=== PATIENT | female | born 1965 | race Caucasian/White ===

== ENCOUNTER 2024-04-30 16:44 | Emergency (ER) | payer OTHER, SELFPAY ==
--- NOTE | ~2024-04-30 | XR_ITS ---
EXAMINATION: XR chest 2V Exam Date/Time: 04/30/2024 17:05 CDT HISTORY: CHEST PAIN Comparison: None. RESULT: Lines, tubes, and devices: None. Lungs and pleura: Mild peripheral and basilar reticular opacities. Cardiomediastinal silhouette: Stable. Other: No acute osseous or upper abdominal finding. IMPRESSION: Mild interstitial edema versus chronic interstitial change. Reviewed, dictated and finalized at location K.
--- NOTE | 2024-04-30 16:45 | ECG_ITS ---
Test Date: 2024-04-30 16:49:56 Measurements Intervals [place] Rate: 89 P: 57 ID: [id number] QRS: 22 QRSD: 85 T: 14 QT: 357 QTc: 437 Interpretive Statements SINUS RHYTHM POSSIBLE LEFT ATRIAL ENLARGEMENT RSR' IN V1 OR V2, RIGHT VCD OR RVH BORDERLINE ST-T WAVE ABNORMALITY- ANTEROLAT/INF LEADS BASELINE ARTIFACT- I, II, III, AVR, AVF BORDERLINE ECG No previous ECG available for comparison Electronically Signed On 05-01-2024 07:28:26 CDT by Ye Lindquist D.O.
[2024-04-30 16:57] VITALS: BP 140/69; PULSE 90; RESP 16; TEMP 36.6; O2SAT 100
[2024-04-30 17:29] LABS: Basophils Absolute Auto 0.1 K/mm3 (0.0-0.1); Basophils Percent Auto 1.3 % (0.2-1.2); Eosinophils Absolute Auto 0.3 K/mm3 (0-0.3); Eosinophils Percent Auto 3.2 % (0-4.4); Hematocrit 45.6 % (37.0-47.0); Hemoglobin 14.9 g/dL (12.0-15.0); Immature Granulocyte Absolute 0.05 K/mm3 (0.00-0.031); Immature Granulocyte Percent A 0.6 % (0-0.5); Lymphocytes Absolute Auto 2.68 K/mm3 (0.9-3.2); Lymphocytes Percent Auto 30.6 % (18.3-44.2); Mean Corpuscular HGB Conc 32.7 g/dl (32-36); Mean Corpuscular Volume 91.9 fl (80-100); Mean Platelet Volume 8.7 fl (7.4-10.4); Monocytes Absolute Auto 0.6 K/mm3 (0.1-0.6); Neutrophils Percent Auto 57.3 % (45.5-73.1); Platelet Count Result 288 k/mm3 (150-375); Red Blood Count 4.96 M/mm3 (4.2-5.4); Red Cell Distribution Width 13.2 % (11.5-14.5); White Blood Count 8.8 K/mm3 (4.5-10.0)
[2024-04-30 17:39] LABS: Alanine Aminotransferase 16 U/L (6-35); Albumin Level 4.6 g/dL (3.5-5.1); Alkaline Phosphatase 75 U/L (38-126); Anion Gap 9 mmol/L (4-12); Aspartate Amino Transferase 24 U/L (14-36); Bilirubin,Total 0.3 mg/dL (0.2-1.3); Blood Urea Nitrogen 13 mg/dL (7-17); Carbon Dioxide 25 mmol/L (22-30); Chloride 105 mmol/L (98-107); Estimated CRCL calculation 62 ml/min; Estimated Glomerular Filt Rate > 60; Glucose 91 mg/dL (65-110); Lipase 106 U/L (23-300); Potassium 3.8 mmol/L (3.4-5.0); Sodium 139 mmol/L (137-145)
[2024-04-30 17:41] LABS: Partial Thromboplastin Time 27.3 Seconds (22.3-36.8); Prothrombin Time 13.5 Seconds (11.1-14.7)
[2024-04-30 17:50] LABS: Troponin I < 0.012 ng/mL (0.000-0.034)
--- NOTE | 2024-04-30 18:15 | ED.CHESTPAIN ---
HPI - Chest Pain General Chief Complaint: Chest Pain Stated Complaint: chest pain Time Seen by Provider: 04/30/24 18:05 Source: patient and family Mode of arrival: ambulatory Limitations: no limitations History of Present Illness HPI narrative: 58-year-old otherwise healthy here with the complaints of chest pain for past couple did weeks. Patient states that the he has a lab which is about 90 lb jumped on her chest. She denies any shortness of breath however she states that it hurts with a deep breathing. She denies any cough or fever or chills. No previous history of CAD MD complaint: chest pain Onset (ago): week(s) (2) Timing of current episode: constant Onset: other (Her dog jumped on a chest) Pain location: parasternal Pain radiation: none Severity: moderate Quality: aching Relieving factors: nothing Exacerbating factors: exertion, inspiration and movement Treatment prior to arrival: none Risk Factors Coronary artery disease risk factors: none Related Data Allergies Allergy/AdvReac Type Severity Reaction Status Date / Time No Known Allergies Allergy Mild Unverified 04/30/24 16:44 Review of Systems Review of Systems: All systems reviewed & are unremarkable except as noted in HPI and below ROS unobtainable: Yes unobtainable due to endotracheal tube Constitutional: Constitutional: Reports no additional constitutional complaints Eyes: Eyes: Reports no additional eye complaints ENT: Reports system reviewed and no additional complaints, except as documented Cardiovascular: Cardiovascular: Reports as per HPI Respiratory: Respiratory: Reports no additional respiratory complaints Genitourinary: Genitourinary: Reports no additional female genitourinary complaints Musculoskeletal: Musculoskeletal: Reports no additional musculoskeletal complaints Integumentary/Breasts: Skin/Breast: Reports system reviewed and no additional complaints, except as docu Exam Narrative: GENERAL: Well-appearing, well-nourished, and in no acute distress. HEAD: Normocephalic, atraumatic. EYES: PERRLA and EOMI. ENT: Nares clear, no rhinorrhea or epistaxis. Mucous membranes moist. NECK: Supple. CHEST: Clear to auscultation. No respiratory distress. HEART: Regular rate and rhythm. No murmur heard. Normal peripheral pulses. ABDOMEN: Soft, nontender, nondistended, normal active bowel sounds. EXTREMITIES: Normal range of motion. No edema. SKIN: Warm, dry, no rash. NEURO: No focal deficits. Alert and oriented x3. PSYCH: Normal mood and affect. Course Course Emergency Course: Patient having some chills. Did inform her about her lab work, EKG and chest x-ray findings. Most likely is musculoskeletal pain recommended her to take pain medication as prescribed, follow-up with her primary doctor Vital Signs Vital signs: Vital Signs Temperature 36.6 C 04/30/24 16:57 Pulse Rate 90 04/30/24 16:57 Respiratory Rate 16 04/30/24 16:57 Blood Pressure 140/69 04/30/24 16:57 Pulse Oximetry 100 04/30/24 16:57 Oxygen Delivery Room Air 04/30/24 16:57 Temperature 36.6 C 04/30/24 16:57 Pulse Rate 90 04/30/24 16:57 Respiratory Rate 16 04/30/24 16:57 Blood Pressure 140/69 04/30/24 16:57 Pulse Oximetry 100 04/30/24 16:57 Oxygen Delivery Room Air 04/30/24 18:12 MDM - Chest Pain Differential Diagnosis Differential diagnosis: Likely fracture of rib, pneumothorax, atypical chest pain and costochondritis Lab Data Attestation: I reviewed the patient's lab results. 04/30/24 17:22 04/30/24 17:22 Labs: Lab Results 04/30/24 Range/Units 17:22 WBC 8.8 (4.5-10.0) K/mm3 RBC 4.96 (4.2-5.4) M/mm3 Hgb 14.9 (12.0-15.0) g/dL Hct 45.6 (37.0-47.0) % MCV 91.9 (80-100) fl MCH 30.0 (26-34) pg MCHC 32.7 (32-36) g/dl RDW 13.2 (11.5-14.5) % Plt Count 288 (150-375) k/mm3 MPV 8.7 (7.4-10.4) fl Immature Gran % (Auto) 0.6 H (0-0.5) % Neut % (Auto) 57.3
[2024-04-30 18:31] VITALS: BP 126/77; PULSE 76; RESP 14; TEMP 36.6; O2SAT 100
[2024-04-30 18:58] VITALS: BP 124/86; PULSE 76; RESP 15; O2SAT 100
== END 2024-04-30 18:59 | disposition home or self-care (01) ==
PROVIDERS: Emergency Provider Family Medicine
DX: R07.89 Other chest pain (principal)
CPT/HCPCS: 36415; 71046; 80053; 83690; 84484; 85025; 85610; 85730; 93005; 99284

== ENCOUNTER 2025-05-19 08:02 | Outpatient (CLI) | payer OTHER, SELFPAY ==
--- NOTE | ~2025-05-19 | XR_ITS ---
Thoracic spine: Clinical Indication: Back pain AP and lateral views were performed. There is mild compression deformity of probably T8. The intervertebral disc spaces appear normal. Par avertebral soft tissues appear normal. Impression: Mild compression deformity of probably T8. Reviewed, dictated and finalized at location . Impression: Mild compression deformity of probably T8.
--- NOTE | ~2025-05-19 | XR_ITS ---
Lumbosacral Spine: AP and lateral views Clinical History: Pain Findings: The normal lordotic curve is maintained. The vertebral bodies and posterior elements are i ntact. The intervertebral disc spaces are preserved. There is moderate facet arthropathy at the lowe r lumbar spine. The sacroiliac joints are normally outlined. Impression: Facet arthropathy, as above. Reviewed, dictated and finalized at location . Impression: Facet arthropathy, as above.
== END 2025-05-19 08:03 | disposition home or self-care (01) ==
LOC: MICIMG 08:03
DX: M54.50 Low back pain, unspecified (principal)
CPT/HCPCS: 72072; 72100